=== PATIENT | female | born 1995 | race Two or more races ===

== ENCOUNTER 2019-10-01 20:08 | Emergency (ER) | payer OTHER ==
[~2019-10-01] VITALS: Ht 157.5 cm; Wt 67.3 kg
[2019-10-01] MEDS ORDERED: SERT100T12 PO (20:44)
[2019-10-01] MEDS ORDERED: QUET50TA PO (20:44)
[2019-10-01 21:30] VITALS: BP 128/91
[2019-10-01] MEDS ORDERED: SERTRALINE HCL 50 MG TABLET PO ONE (21:45)
[2019-10-01] MEDS ORDERED: QUEtiapine FUMARATE 100 MG TABLET PO ONE (21:45)
== END 2019-10-01 22:06 | disposition home or self-care (01) ==
LOC: EMS 20:11
DX: H10.89 Other conjunctivitis (principal); K08.89 Other specified disorders of teeth and supporting structures; F41.9 Anxiety disorder, unspecified; F12.90 Cannabis use, unspecified, uncomplicated; Z79.899 Other long term (current) drug therapy; Z91.018 Allergy to other foods

== ENCOUNTER 2021-10-01 09:24 | Inpatient (IN) | payer MEDICAID, OTHER ==
[~2021-10-01] VITALS: Ht 157.5 cm; Wt 82.2 kg
[~2021-10-01 09:24] MED LIST: QUET50TA PO; SERT-162 PO
[2021-10-01 10:15] LABS: BASOPHILS % (AUTO) 0.8 % (0.0-2.0); EOSINOPHILS % (AUTO) 1.3 % (1.0-6.0); HEMATOCRIT 40.5 % (36-46); HEMOGLOBIN 14.2 g/dL (12.0-16.0); LYMPHOCYTES # (AUTO) 1.3 K/uL (1.0-4.8); LYMPHOCYTES % (AUTO) 19.8 % (22.0-44.0); MEAN CORPUSCULAR HEMOGLOBIN 31.5 pg (26.0-34.0); MEAN CORPUSCULAR HGB CONC 34.9 G/dL (31.0-37.0); MEAN CORPUSCULAR VOLUME 90 fL (80-100); MONOCYTES # (AUTO) 0.5 K/uL (0.1-1.0); MONOCYTES % (AUTO) 7.5 % (2.0-9.0); NEUTROPHILS # (AUTO) 4.7 K/uL (1.8-7.7); NEUTROPHILS % (AUTO) 70.6 % (40.0-70.0); PLATELET COUNT (AUTO) 172 K/uL (150-450); RED CELL DISTRIBUTION WIDTH 12.4 % (11.5-14.5)
[2021-10-01 10:25] LABS: ANION GAP 6 mmol/L (8-16); CALCIUM, TOTAL 8.9 mg/dL (8.8-10.5); CARBON DIOXIDE 28 mmol/L (22-29); CHLORIDE 103 mmol/L (98-107); CREATININE 0.73 mg/dL (0.60-1.30); GLOMERULAR FILTR. RATE CALC > 60 mL/min (>60); GLUCOSE,RANDOM 90 mg/dL (70-110); POTASSIUM 4.2 mmol/L (3.5-5.1); SODIUM SERUM 137 mmol/L (136-145); UREA NITROGEN, BLOOD 13 mg/dL (7-18)
[2021-10-01 10:31] LABS: ALANINE AMINOTRANSFERASE 24 U/L (12-78); ALBUMIN 3.8 g/dL (3.4-5.0); ALKALINE PHOSPHATASE 73 U/L (46-116); ASPARTATE AMINOTRANSFERASE 18 U/L (15-37); BILIRUBIN,TOTAL 0.3 mg/dL (0.1-1.0); TOTAL PROTEIN, SERUM 7.3 g/dL (6.4-8.2)
[2021-10-01] MEDS ORDERED: QUEtiapine FUMARATE 100 MG TABLET PO ONE (11:00)
[2021-10-01 11:54] LABS: COVID AG,FIA SOURCE NASOPHARYNGEAL
[2021-10-01] MEDS ORDERED: HALOPERIDOL 5 MG TABLET PO PRN (12:00)
[2021-10-01] MEDS ORDERED: ZOLPIDEM TARTRATE 10 MG TABLET PO PRN (12:00)
[2021-10-01 12:05] LABS: AMPHET/METH SCREEN,URINE NEGATIVE (NEGATIVE); BARBITURATE SCREEN, URINE NEGATIVE (NEGATIVE); BENZODIAZEPINES SCREEN,URINE NEGATIVE (NEGATIVE); CANNABINOID SCREEN,URINE NEGATIVE (NEGATIVE); COCAINE SCREEN,URINE NEGATIVE (NEGATIVE); METHADONE SCREEN, URINE NEGATIVE (NEGATIVE); OPIATE SCREEN,URINE NEGATIVE (NEGATIVE)
[2021-10-01 12:06] LABS: PHENCYCLIDINE SCREEN,URINE NEGATIVE (NEGATIVE)
[2021-10-02] MEDS: QUEtiapine FUMARATE 200 MG TABLET PO SCH ×2 (10:14→21:00)
[2021-10-02] MEDS: LORazepam 2 MG TABLET PO PRN (10:22)
[2021-10-02] MEDS ORDERED: DOCUSATE SODIUM 100 MG CAPSULE PO PRN (10:30)
[2021-10-02] MEDS ORDERED: ACETAMINOPHEN 325 MG TABLET PO PRN (10:30)
[2021-10-02] MEDS ORDERED: GuaiFENesin/D-METHORPHAN [SUGAR-FREE] 200-20MG/10 ML SYRUP UDCUP PO PRN (10:30)
[2021-10-02] MEDS ORDERED: NICOTINE 14 MG/24 HOUR PATCH TD PRN (10:30)
[2021-10-02] MEDS ORDERED: ALBUTEROL SULFATE HFA 90 MCG/PUFF 8 GM INHALER IH PRN (10:30)
[2021-10-02] MEDS ORDERED: CloNIDine HCL 0.1 MG TABLET PO PRN (10:30)
[2021-10-02] MEDS ORDERED: IBUPROFEN 400 MG TABLET PO PRN (10:30)
[2021-10-02] MEDS ORDERED: MAG HYDROX/AL HYDROX/SIMETH ES 30 ML SUSPENSION UDCUP PO PRN (10:30)
[2021-10-02] MEDS ORDERED: LOPERAMIDE HCL 2 MG CAPSULE PO PRN (10:30)
[2021-10-02] MEDS ORDERED: ONDANSETRON HCL 4 MG TABLET PO PRN (10:30)
[2021-10-02] MEDS ORDERED: PETROLATUM,WHITE 28 GM JELLY TP PRN (10:30)
[2021-10-02] MEDS ORDERED: MAGNESIUM HYDROXIDE SUSPENSION 30 ML UDCUP PO PRN (10:30)
[2021-10-02 11:06] VITALS: BP 134/67
[2021-10-02] MEDS ORDERED: GABA-1181 PO (11:52)
[2021-10-02] MEDS ORDERED: QUET200T PO (11:52)
[2021-10-02] MEDS ORDERED: DIVA125T32 PO (11:52)
[2021-10-02] MEDS ORDERED: FLUO20CA36 PO (11:52)
[2021-10-02] MEDS ORDERED: INFLUENZA VIRUS VACCINE QVS 2021-22 (6MO+)/PF 60 MCG/0.5 ML SYRINGE IM. ONE (12:00)
[2021-10-02 16:16] VITALS: BP 106/66
[2021-10-03 00:55] VITALS: BP 102/69
[2021-10-03 07:16] LABS: CHOL/HDL RATIO 3.2 (3.9-5.7)
[2021-10-03 08:34] VITALS: BP 122/68
[2021-10-03] MEDS: QUEtiapine FUMARATE 200 MG TABLET PO SCH ×2 (09:04→20:31)
[2021-10-03 17:33] VITALS: BP 100/56
[2021-10-04 00:21] VITALS: BP 112/65
[2021-10-04] MEDS: QUEtiapine FUMARATE 200 MG TABLET PO SCH ×2 (08:56→20:00)
[2021-10-04] MEDS: LORazepam 2 MG TABLET PO PRN ×2 (08:56→19:15)
[2021-10-04 09:46] VITALS: BP 120/66
[2021-10-04 16:10] VITALS: BP 119/62
[2021-10-05 00:19] VITALS: BP 110/75
[2021-10-05] MEDS: QUEtiapine FUMARATE 200 MG TABLET PO SCH ×2 (08:21→20:06)
[2021-10-05 08:31] VITALS: BP 118/79
[2021-10-05] MEDS: LORazepam 2 MG TABLET PO PRN (08:34)
[2021-10-05 16:29] VITALS: BP 112/63
[2021-10-06 01:06] VITALS: BP 111/68
[2021-10-06] MEDS: LORazepam 2 MG TABLET PO PRN (01:06)
[2021-10-06 03:52] VITALS: BP 114/84
[2021-10-06 08:23] VITALS: BP 100/65
[2021-10-06] MEDS: QUEtiapine FUMARATE 200 MG TABLET PO SCH (08:32)
[2021-10-06] MEDS ORDERED: QUET200T PO (10:10)
== END 2021-10-06 13:07 | DRG 753 ==
LOC: EMS 09:31 → B3A 10-02 06:18
PROVIDERS: ADMIT Psychiatry & Neurology Psychiatry; ATTEND Psychiatry & Neurology Psychiatry
DX: F31.63 Bipolar disorder, current episode mixed, severe, without psychotic features (principal); F12.90 Cannabis use, unspecified, uncomplicated; F15.10 Other stimulant abuse, uncomplicated; K59.00 Constipation, unspecified; F90.9 Attention-deficit hyperactivity disorder, unspecified type; Z20.822 Contact with and (suspected) exposure to COVID-19; R10.13 Epigastric pain; F17.210 Nicotine dependence, cigarettes, uncomplicated; Z65.3 Problems related to other legal circumstances; Z91.018 Allergy to other foods
CPT/HCPCS: 80053; 80061; 85025; 99285; G0480